=== PATIENT | female | born 1985 | race Hispanic/Latino ===

== ENCOUNTER 2020-03-24 13:35 | Outpatient (CLI) | payer OTHER ==
--- NOTE | 2020-03-24 15:27 | ULT ---
COMPLETE ULTRASOUND GREATER THAN 13 WEEKS: HISTORY: Normal supervision. Anatomy evaluation. Cervical length evaluation. FINDINGS: A single viable intrauterine fetus is noted in variable but mostly breech-type presentation. Placent a is anterior. Cervical length 4.5 cm. Amniotic fluid is within normal limits with an LORIN of 18.8 c m. heart rate 139 b.p.m. Visualized brain, 4-chamber heart, 3-vessel cord, stomach, bladder, kidneys, spine, and extremi ty regions are unremarkable. Biometry: BPD 4.8 cm-20 weeks 4 days Head circumference 17.5 cm-20 weeks 1 day Abdominal circumference 15.6 cm-20 weeks 6 days Femur length 3.2 cm-20 weeks 0 days Maternal adnexa is not demonstrated. IMPRESSION: Single viable intrauterine fetus at 20 weeks 3 days, estimated date of delivery 08/07/2020. Estimated weight 347 gm. Breech presentation. POS: OFF
== END 2020-03-24 13:36 | disposition home or self-care (01) ==
LOC: BICULT 13:35
PROVIDERS: ATTEND Family Medicine
DX: Z34.82 Encounter for supervision of other normal pregnancy, second trimester (principal); Z3A.20 20 weeks gestation of pregnancy; O32.1XX0 Maternal care for breech presentation, not applicable or unspecified
CPT/HCPCS: 76805